=== PATIENT | male | born 1980 | race Caucasian/White ===

== ENCOUNTER → 2018-11-21 | Emergency (ER) | payer OTHER ==
[~2018-11-21] VITALS: Ht 193 cm; Wt 113.4 kg
[~2018-11-21] MED LIST: AIRBORNE EFFER1 EACH PO; IBUPROFEN800 MG PO; MUCINEX DM ER1 EAC1 PO; OSEL75CA PO; TESSALON PERLE100 M1 PO
== END | disposition home or self-care (01) ==
LOC: ER 06:01
DX: J11.1 Influenza due to unidentified influenza virus with other respiratory manifestations (principal); R50.9 Fever, unspecified

== ENCOUNTER 2022-01-16 08:00 | Outpatient (CLI) | payer OTHER | END 2022-01-16 08:30 | disposition home or self-care (01) | LOC: PPH VACUNA 08:00 | PROVIDERS: ATTEND Emergency Medicine Pediatric Emergency Medicine | DX: Z23 Encounter for immunization (principal) ==

== ENCOUNTER 2022-11-13 17:35 | Emergency (ER) | payer OTHER ==
[~2022-11-13] VITALS: Ht 188 cm; Wt 88.5 kg
== END 2022-11-13 20:15 | disposition home or self-care (01) ==
LOC: ER 17:35
DX: H10.9 Unspecified conjunctivitis (principal)

== ENCOUNTER 2023-01-07 23:24 | Emergency (ER) | payer OTHER ==
[~2023-01-07] VITALS: Ht 188 cm; Wt 93.0 kg
== END 2023-01-08 04:47 | disposition home or self-care (01) ==
LOC: ER 23:24
DX: M54.10 Radiculopathy, site unspecified (principal); M79.662 Pain in left lower leg; Z72.0 Tobacco use

== ENCOUNTER 2023-03-18 14:15 | Emergency (ER) | payer OTHER ==
[~2023-03-18] VITALS: Ht 188 cm; Wt 93.0 kg
== END 2023-03-18 19:01 | disposition home or self-care (01) ==
LOC: ER 14:15
DX: J06.9 Acute upper respiratory infection, unspecified (principal); Z20.822 Contact with and (suspected) exposure to COVID-19

== ENCOUNTER → 2023-08-29 | Emergency (ER) | payer OTHER ==
[~2023-08-29] VITALS: Ht 190.5 cm; Wt 93.0 kg
[~2023-08-29] MED LIST changes: +DICLOFENAC POTA50 MG PO; +TIZANIDINE HCL2 M1 PO
== END | disposition home or self-care (01) ==
LOC: ER 08:00
DX: M54.50 Low back pain, unspecified (principal)
CPT/HCPCS: 72100; 96372; 99284; J1885; J2360

== ENCOUNTER 2023-10-05 12:46 | Emergency (ER) | payer OTHER ==
[~2023-10-05] VITALS: Ht 190.5 cm; Wt 90.7 kg
[2023-10-05 14:16] LABS: HEMOGLOBIN 15.2 g/dL (13-16.00); MEAN CELL VOLUME 83.6 fL (80.0-100.00); MEAN CORPUSCULAR HEMOGLOBIN 28.8 pg (27.00-32.0); MEAN CORPUSCULAR HGB CONC 34.4 g/dl (32.0-36.0); PLATELET COUNT 277 K/uL (150-450); RED BLOOD COUNT 5.27 M/uL (4.00-6.00); RED CELL DISTRIBUTION WIDTH 14.1 % (11.5-14.5)
[2023-10-05] MEDS ORDERED: ZYRTEC10 MG PO (14:58)
[2023-10-05] MEDS ORDERED: ZITHROMAX500 MG PO (14:58)
[2023-10-05] MEDS ORDERED: NASONEX 24HR AL17 ML NASAL (14:58)
== END 2023-10-05 18:00 | disposition home or self-care (01) ==
LOC: ER 12:47
PROVIDERS: General Practice
DX: B34.9 Viral infection, unspecified (principal); R53.81 Other malaise; Z20.822 Contact with and (suspected) exposure to COVID-19